=== PATIENT | male | born 1965 | race Caucasian/White ===

== ENCOUNTER 2017-05-02 05:01 | Emergency (ER) | payer OTHER ==
[2017-05-02] MEDS ORDERED: Glucagon,Human Recombinant 1 MG Vial IM ONE (05:28)
--- NOTE | 2017-05-02 05:38 | EDM.PDOC ---
ED HPI GENERAL MEDICAL PROBLEM - General Chief Complaint: ENT Problem Stated Complaint: PILL STUCK IN THROAT [id number] Time Seen by Provider: 05/02/17 05:20 Source of Information: Reports: Patient History Limitations: Reports: No Limitations - History of Present Illness INITIAL COMMENTS - FREE TEXT/NARRATIVE: ED ambulatory with c/o of "pill stuck", Notes taking viamin E approximately 2 am and pill got stuck, gagging immediately after, throat now feels full and scratchy. Difficulty with swallowing water, feels like bile coming up. Onset: Today Throat Pain Score (Numeric/FACES): 7 - Related Data Allergies Allergy/AdvReac Type Severity Reaction Status Date / Time codeine Allergy Nausea and Verified 05/02/17 05:23 Vomiting Home Meds: Home Meds Fish Oil/[place]-3 Fatty Acids [Fish Oil] 1 each PO DAILY 05/02/17 [History] Multivitamin with Minerals [Multiple Vitamin] 1 tab PO DAILY 05/02/17 [History] Past Medical History - Past Surgical History Musculoskeletal Surgical History: Reports: Shoulder Surgery Other Musculoskeletal Surgeries/Procedures:: 2 shoulder surgeries and 1 right ankle surgery Social & Family History - Tobacco Use Smoking Status *Q: Never Smoker - Caffeine Use Caffeine Use: Reports: Coffee, Soda - Recreational Drug Use Recreational Drug Use: No ED ROS ENT - Review of Systems Review Of Systems: ROS reveals no pertinent complaints other than HPI. ED EXAM, ENT - Physical Exam Exam: See Below Exam Limited By: No Limitations General Appearance: Alert, No Apparent Distress, Anxious Eye Exam: Bilateral Eye: EOMI, PERRL Ears: Normal External Exam, Normal TMs Nose: Normal Inspection Mouth/Throat: Normal Inspection, Normal Gums, Normal Oropharynx, Other (no drooling). No: Hoarse Voice, Oral Ulcers, Pharyngeal Erythema, Tongue Swelling , Tonsillar Erythema, Uvular Deviation Head: Atraumatic, Normocephalic Neck: Normal Inspection, Supple, Non-Tender, Full Range of Motion. No: Lymphadenopathy (L), Lymphadenopathy (R) Respiratory/Chest: No Respiratory Distress, Lungs Clear, Normal Breath Sounds, No Accessory Muscle Use. No: Rales, Rhonchi, Wheezing, Stridor Cardiovascular: Normal Peripheral Pulses, Regular Rate, Rhythm, Tachycardia GI/Abdominal: Normal Bowel Sounds, Soft, Non-Tender Back: Normal Inspection, Full Range of Motion Extremities: Normal Inspection, Normal Range of Motion, Non-Tender Neurological: Alert, Oriented, Normal Cognition, Normal Gait, No Motor/Sensory Deficits Psychiatric: Anxious Skin: Warm, Dry, Intact, Normal Color, No Rash Course - Vital Signs Last Recorded V/S: Last Vital Signs Temp 97.6 F 05/02/17 05:11 Pulse 110 H 05/02/17 05:11 Resp 18 05/02/17 05:11 BP 175/123 H 05/02/17 05:06 Pulse Ox 100 05/02/17 05:11 - Orders/Labs/Meds Meds: Medications Discontinued Medications Generic Name Dose Route Start Last Admin Trade Name Nicoq PRN Reason Stop Dose Admin Al Hydroxide/Mg Hydroxide 30 ml 05/02/17 05:57 05/02/17 06:02 Gi Cocktail PO 05/02/17 05:58 30 ml ONETIME ONE Administration Glucagon 1 mg 05/02/17 05:28 05/02/17 05:35 Glucagen IM 05/02/17 05:29 1 mg ONETIME ONE Administration - Re-Assessments/Exams Free Text/Narrative Re-Assessment/Exam: 05/02/17 06:20 Glucagon with improvement in symptoms, Able to drink full glass of water without difficulty. C/o presence of"bile" in throat. GI cocktail with some improvement, light dozing. Departure - Departure Time of Disposition: 06:16 Disposition: Home, Self-Care 01 Condition: Fair Clinical Impression: Esophageal spasm - Discharge Information Instructions: Swallowed Foreign Body, Adult, [id number] Forms: ED Department Discharge Additional Instructions: soft bland iet 24 hours advance as tolerated obtain smaller Vitamin E capsules increase fluid intake prior to and after attempting to swallow larger items Follow up if not improving Clinic follow up to recheck BP
[2017-05-02] MEDS ORDERED: GI Cocktail Oral Solution 30 ML PO ONE (05:57)
[2017-05-02 06:21] VITALS: BP 157/98
== END 2017-05-02 06:25 | disposition home or self-care (01) ==
LOC: DL.ED 05:01
DX: K22.4 Dyskinesia of esophagus (principal); Z91.013 Allergy to seafood
CPT/HCPCS: 96372; 99283; A9270; J1610